=== PATIENT | male | born 1960 | race Two or more races ===

== ENCOUNTER 2024-03-22 06:58 | Day surgery (SDC) | payer OTHER ==
[2024-03-22] MEDS ORDERED: fentaNYL CITRATE 50 MCG/ML AMPUL IV ONE (11:45)
[2024-03-22] MEDS ORDERED: MIDAZOLAM HCL 2 MG/2 ML VIAL IV ONE (11:45)
[2024-03-22] MEDS ORDERED: DIPHENHYDRAMINE HCL 50 MG/ML VIAL 1ML IV ONE (11:45)
== END 2024-03-22 13:25 | disposition home or self-care (01) ==
LOC: CIR.AMB 06:58 → AMB-ENDOS 06:58 → CIR.AMB 14:30
PROVIDERS: ATTEND Surgery
DX: K63.5 Polyp of colon (principal); K62.5 Hemorrhage of anus and rectum

== ENCOUNTER 2024-05-15 10:15 | Inpatient (IN) | payer OTHER ==
[~2024-05-15] VITALS: Ht 162.6 cm; Wt 42.6 kg
[2024-05-15 12:34] VITALS: BP 118/79
[2024-05-17] MEDS ORDERED: LIDOCAINE HCL 1%/EPINEPHRINE 20ML VIAL IJ ONE (12:00)
[2024-05-17] MEDS ORDERED: BUPIVACAINE HCL/PF 0.25% 30ML VIAL InF ONE (12:00)
[2024-05-17] MEDS ORDERED: METROnidazole 500 MG TABLET PO ONE (12:00)
[2024-05-17] MEDS ORDERED: CEFTRIAXONE SODIUM 2,000 MG VIAL IV ONE (12:00)
[2024-05-17] MEDS ORDERED: METRONIDAZOLE/SODIUM CHLORIDE 500 MG/100 ML PIGGYBACK IV SCH (13:05)
[2024-05-17] MEDS ORDERED: OxyCODONE HCL 5 MG TABLET (ROXICODONE) PO PRN (13:15)
[2024-05-17] MEDS ORDERED: MORPHINE SULFATE 4 MG/ML CARTRIDGE IV PRN (13:15)
[2024-05-17] MEDS ORDERED: ONDANSETRON HCL 2 MG/ML VIAL IV PRN (13:15)
[2024-05-17] MEDS ORDERED: RINGERS SOLUTION,LACTATED 1,000 ML IV SCH (13:15)
[2024-05-17] MEDS ORDERED: MORPHINE SULFATE 4 MG/ML VIAL IV ONE ×2 (13:45→14:15)
[2024-05-17] MEDS ORDERED: LORazepam 2 MG/ML VIAL IV PRN (15:30)
[2024-05-17] MEDS ORDERED: HYOSCYAMINE SULFATE 0.125 MG TAB.SUBL SL SCH (17:00)
[2024-05-17] MEDS ORDERED: GABAPENTIN 300 MG CAPSULE PO SCH (17:00)
[2024-05-17] MEDS ORDERED: TAMSULOSIN HCL 0.4 MG CAP PO SCH (17:00)
[2024-05-17] MEDS ORDERED: LACTOBACILLUS ACIDOPHILUS 1 CAP CAP PO SCH (17:00)
[2024-05-17 17:20] VITALS: BP 119/66; O2SAT 97
[2024-05-17] MEDS ORDERED: ACETAMINOPHEN 500 MG GEL..CAP PO SCH (18:00)
[2024-05-17] MEDS ORDERED: FAMOTIDINE/PF 20 MG/2 ML VIAL IV PUSH SCH (21:00)
[2024-05-17] MEDS ORDERED: CIPROFLOXACIN IN 5 % DEXTROSE 400 MG/200 ML PIGGYBAG IV SCH (21:00)
[2024-05-18] VITALS: BP 111/65; O2SAT 97
[2024-05-18 08:05] VITALS: BP 106/58; O2SAT 95
[2024-05-18 08:30] LABS: HEMATOCRIT 38.8 % (39.0-48.0); HEMOGLOBIN 13.1 g/dL (13-16.00); MEAN CELL VOLUME 93.2 fL (80.0-100.00); MEAN CORPUSCULAR HEMOGLOBIN 31.6 pg (27.00-32.0); MEAN CORPUSCULAR HGB CONC 33.8 g/dl (32.0-36.0); PLATELET COUNT 333 K/uL (150-450); RED BLOOD COUNT 4.16 M/uL (4.00-6.00); RED CELL DISTRIBUTION WIDTH 13.2 % (11.5-14.5)
[2024-05-18] MEDS ORDERED: IRON FUM,PS/FOLIC/BCOMP,C NO.9 1 CAP CAPSULE PO SCH (09:00)
[2024-05-18] MEDS ORDERED: THIAMINE HCL 100 MG TABLET PO SCH (09:00)
[2024-05-18] MEDS ORDERED: FOLIC ACID 1 MG TABLET PO SCH (09:00)
[2024-05-18 09:31] LABS: ALBUMIN 2.9 gm/dL (3.4-5.0); CALCIUM 8.4 mg/dL (8.5-10.1); CREATININE SERUM 0.85 mg/dL (0.70-1.30); GFR 90.46; MAGNESIUM 1.7 mg/dL (1.8-2.4); POTASSIUM 4.11 mEq/L (3.5-5.1)
[2024-05-18] MEDS ORDERED: POTASSIUM PHOS,M-BASIC-D-BASIC 15 MM in 0.9 % SODIUM CHLORIDE 250 ML IV NR (11:30)
[2024-05-18] MEDS ORDERED: ENOXAPARIN SODIUM 40 MG/0.4 ML SYRINGE SUBCUTANEO SCH (17:00)
[2024-05-18 17:05] VITALS: BP 107/66; O2SAT 95
[2024-05-19 01:11] VITALS: BP 93/61; O2SAT 95
[2024-05-19] MEDS ORDERED: ENOXAPARIN SODIUM 40 MG/0.4 ML SYRINGE SUBCUTANEO SCH (09:00)
[2024-05-19 09:43] VITALS: BP 130/77; O2SAT 96
[2024-05-19 15:40] VITALS: BP 129/78; O2SAT 96
[2024-05-20] VITALS: BP 114/63; O2SAT 96
[2024-05-20 10:12] VITALS: BP 121/81; O2SAT 96
[2024-05-20] MEDS ORDERED: INTESTINEX680 M1 PO (10:58)
[2024-05-20] MEDS ORDERED: PEPCID AC20 MG PO (10:58)
[2024-05-20] MEDS ORDERED: TRAM1TAB98 PO (10:58)
[2024-05-20] MEDS ORDERED: HYOSCYAMINE0.125 M1 SL (10:58)
== END 2024-05-20 14:15 | disposition home or self-care (01) | DRG 330 ==
LOC: O/R 05-17 08:03 → SURH 05-17 08:03
PROVIDERS: ADMIT Surgery; ATTEND Surgery
PROC: 0DBP4ZZ Excision of Rectum, Percutaneous Endoscopic Approach (ICD-10-PCS; 2024-05-17)
PROC: 07BB4ZZ Excision of Mesenteric Lymphatic, Percutaneous Endoscopic Approach (ICD-10-PCS; 2024-05-17)
PROC: 0DBU4ZZ Excision of Omentum, Percutaneous Endoscopic Approach (ICD-10-PCS; 2024-05-17)
PROC: 0DQE4ZZ Repair Large Intestine, Percutaneous Endoscopic Approach (ICD-10-PCS; 2024-05-17)
PROC: 0DJD8ZZ Inspection of Lower Intestinal Tract, Via Natural or Artificial Opening Endoscopic (ICD-10-PCS; 2024-05-17)
PROC: 0DTN4ZZ Resection of Sigmoid Colon, Percutaneous Endoscopic Approach (ICD-10-PCS; principal; 2024-05-17 15:00)
DX: D12.8 Benign neoplasm of rectum (principal); K91.71 Accidental puncture and laceration of a digestive system organ or structure during a digestive system procedure; D12.5 Benign neoplasm of sigmoid colon

== ENCOUNTER 2024-07-16 17:05 | Inpatient (IN) | payer OTHER ==
[~2024-07-16] VITALS: Ht 160 cm; Wt 72.6 kg
[~2024-07-16 17:05] MED LIST: HYOSCYAMINE0.125 M1 SL; INTESTINEX680 M1 PO; PEPCID AC20 MG PO; TRAM1TAB98 PO
--- NOTE | 2024-07-16 17:09 | NUR ---
SE RECIBE MASCULINO ALERTA Y ORIENTADO X3 CUAL REFIERE PRESENTA DOLOR ABD Y VOMITOS X3 COLOR AMARILLO INTENSO. VERBALIZA ESTUBO [facility] Y LE DI[facility]ERON PRESENTABA RENE OBSTRUCCION INTESTINAL. PTE DE DR.RODRIGUEZ ENRIQUE.
[2024-07-16] MEDS ORDERED: KETOROLAC TROMETHAMINE 60 MG VIAL IM ONE (17:30)
[2024-07-16] MEDS ORDERED: 0.9 % SODIUM CHLORIDE 1,000 ML IV SCH ×2 (17:30→22:30)
[2024-07-16] MEDS ORDERED: ONDANSETRON HCL 2 MG/ML VIAL IV ONE (17:30)
[2024-07-16] MEDS ORDERED: FAMOtidine 10 MG/ML (4ML VIAL) IV ONE (17:30)
[2024-07-16 17:52] LABS: HEMATOCRIT 45.4 % (39.0-48.0); MEAN CELL VOLUME 94.7 fL (80.0-100.00); MEAN CORPUSCULAR HEMOGLOBIN 31.3 pg (27.00-32.0); PLATELET COUNT 315 K/uL (150-450); RED BLOOD COUNT 4.79 M/uL (4.00-6.00); RED CELL DISTRIBUTION WIDTH 13.5 % (11.5-14.5)
--- NOTE | 2024-07-16 17:58 | NUR ---
PTE ALERTA Y ORIENTADO X3, SE EDUCA SOBRE TX MEDICO Y REFIERE ACEPTAR. SE CANALIZA Y SE COLECTAN MUESTRAS DE LAB [facility]JO MEDIDAS ASEPTICAS. SE ADMINISTRA MED BRIDGER ORDEN MEDICA Y NO PRESENTA REACCION. SE HACE ENTREGA DE ENVASE PARA U/A. PEND A REALIZAR CT W/IV Y XRAY
[2024-07-16 18:29] LABS: ALBUMIN 3.8 gm/dL (3.4-5.0); BILIRUBIN TOTAL 2.02 mg/dL (0.3-1.2); CALCIUM 9.5 mg/dL (8.5-10.1); CREATININE SERUM 0.99 mg/dL (0.70-1.30); GFR 75.87; GLOBULINA 3.8 G/DL (2.4-3.5); TOTAL PROTEIN 7.6 gm/dL (6.4-8.2)
[2024-07-16 18:49] LABS: INR 0.98; PARTIAL THROMBOPLASTIN TIME 21.9 SECONDS (22.0-34.0); PROTHROMBIN TIME 10.7 SECONDS (9.0-11.5)
[2024-07-16] MEDS ORDERED: PIPERACILLIN/TAZOBACTAM SODIUM 3.375 GM VIAL IV SCH (19:52)
[2024-07-16 20:03] LABS: PH,URINE 6.5 (5.0-8.0); URINE APPEARANCE Clear; URINE BILIRRUBIN Negative (NEGATIVE); URINE BLOOD Negative; URINE COLOR Yellow; URINE GLUCOSE Negative (NEGATIVE); URINE KETONE Negative (NEGATIVE); URINE LEUKOCYTE Negative; URINE NITRATE Negative; URINE PROTEIN Negative (NEGATIVE); URINE UROBILINOGEN 0.2 E.U./dl
[2024-07-16 20:07] LABS: URINE RBC 5.8 uL (0.0-20.8)
[2024-07-16 20:12] LABS: URINE EPITHELIAL CELLS 0.6 uL (0.0-38.8); URINE WBC 0.9 uL (0.0-23.2)
[2024-07-16] MEDS ORDERED: ACETAMINOPHEN 500 MG GEL..CAP PO PRN (22:30)
[2024-07-16] MEDS ORDERED: ONDANSETRON HCL 4 MG in 0.9 % SODIUM CHLORIDE 50 ML IV PRN (22:30)
[2024-07-16] MEDS ORDERED: MORPHINE SULFATE 4 MG/ML CARTRIDGE IV PRN (22:30)
[2024-07-16 23:00] VITALS: BP 119/75; O2SAT 100
[2024-07-17 08:13] VITALS: BP 129/63; O2SAT 98
[2024-07-17] MEDS ORDERED: FAMOTIDINE/PF 20 MG in 0.9 % SODIUM CHLORIDE 8 ML IV PUSH SCH (09:00)
[2024-07-17] MEDS ORDERED: ENOXAPARIN SODIUM 40 MG/0.4 ML SYRINGE SUBCUTANEO SCH (09:00)
[2024-07-17 16:57] VITALS: BP 132/76; O2SAT 95
[2024-07-18 00:50] VITALS: BP 132/79; O2SAT 96
[2024-07-18 09:01] VITALS: BP 106/67; O2SAT 97
[2024-07-18 16:20] VITALS: BP 128/75; O2SAT 98
[2024-07-19 04:54] VITALS: BP 117/70; O2SAT 98
[2024-07-19 06:32] LABS: HEMATOCRIT 39.3 % (39.0-48.0); HEMOGLOBIN 13.7 g/dL (13-16.00); MEAN CELL VOLUME 92.2 fL (80.0-100.00); MEAN CORPUSCULAR HEMOGLOBIN 32.3 pg (27.00-32.0); PLATELET COUNT 279 K/uL (150-450); RED BLOOD COUNT 4.26 M/uL (4.00-6.00); RED CELL DISTRIBUTION WIDTH 13.5 % (11.5-14.5)
[2024-07-19 07:14] LABS: CALCIUM 8.4 mg/dL (8.5-10.1); CREATININE SERUM 0.86 mg/dL (0.70-1.30); GFR 89.25; MAGNESIUM 1.8 mg/dL (1.8-2.4); PHOSPHOROUS 3.1 mg/dL (2.5-4.9); POTASSIUM 3.58 mEq/L (3.5-5.1)
[2024-07-19 11:06] VITALS: BP 124/81; O2SAT 97
[2024-07-19 16:00] VITALS: BP 116/64; O2SAT 94
[2024-07-20 00:16] VITALS: BP 127/72; O2SAT 97
[2024-07-20 08:58] VITALS: BP 112/60; O2SAT 97
== END 2024-07-20 14:01 | disposition home or self-care (01) | DRG 390 ==
LOC: ER 17:05 → SEC-K 22:25 → SURG 07-19 00:51
PROVIDERS: General Practice; Internal Medicine; ADMIT Surgery; ATTEND Surgery
PROC: BW21YZZ Computerized Tomography (CT Scan) of Abdomen and Pelvis using Other Contrast (ICD-10-PCS; principal; 2024-07-16)
DX: K56.600 Partial intestinal obstruction, unspecified as to cause (principal)